=== PATIENT | male | born 1945 | race Caucasian/White ===

== ENCOUNTER 2022-08-08 10:13 | Emergency (ER) | payer MEDICARE, OTHER ==
--- NOTE | 2022-08-08 10:47 | ED ---
General Adult HPI - General Chief complaint: Abdominal Pain Stated complaint: urogenital Time Seen by Provider: 08/08/22 10:27 Source: patient, RN notes reviewed, old records reviewed Mode of arrival: ambulatory Limitations: no limitations - History of Present Illness Initial comments: 77-year-old male presents ambulatory with family complaining of urinary retention since 2 AM. Does have a history of BPH and on Hytrin. Did have some nausea no vomiting. No fevers. No back pain. History of hypertension, hyperlipidemia. -: hour(s) (8) Location: abdomen (suprapubic) Severity scale (1-10): 6 Quality: constant, other (full) Consistency: constant Improves with: none Worsens with: other (palpation, standing) Associated Symptoms: nausea/vomiting (no vomiting) Treatments Prior to Arrival: none - Related Data Home Medications Medication Instructions Recorded Confirmed Alendronate Sodium 70 mg PO Q7D 08/08/22 08/08/22 PARoxetine [Paxil] 20 mg PO DAILY 08/08/22 08/08/22 Pravastatin Sodium [Pravachol] 40 mg PO DAILY 08/08/22 08/08/22 Terazosin HCl 20 mg PO HS 08/08/22 08/08/22 Verapamil HCl [Verapamil ER] 120 mg PO DAILY 08/08/22 08/08/22 Allergies Allergy/AdvReac Type Severity Reaction Status Date / Time No Known Allergies Allergy Verified 08/08/22 11:40 Review of Systems ROS Statement: Those systems with pertinent positive or pertinent negative responses have been documented in the HPI. ROS Other: All systems not noted in ROS Statement are negative. Past Medical History Past Medical History: Hyperlipidemia, Hypertension History of Any Multi-Drug Resistant Organisms: None Reported Past Surgical History: No Surgical Hx Reported Past Psychological History: Anxiety, Depression Smoking Status: Current every day smoker Past Alcohol Use History: Rare Past Drug Use History: None Reported General Exam Limitations: no limitations General appearance: alert, in no apparent distress Head exam: Present: atraumatic Eye exam: Present: normal appearance, PERRL, EOMI. Absent: scleral icterus, conjunctival injection, periorbital swelling ENT exam: Present: mucous membranes moist Neck exam: Present: full ROM. Absent: tenderness, meningismus Respiratory exam: Absent: respiratory distress, accessory muscle use Cardiovascular Exam: Present: tachycardia GI/Abdominal exam: Present: soft, tenderness (Suprapubic). Absent: distended, guarding, rebound, rigid Extremities exam: Present: normal capillary refill. Absent: pedal edema Back exam: Absent: tenderness Neurological exam: Present: alert, oriented X3, normal gait Psychiatric exam: Present: normal affect, normal mood Skin exam: Present: warm, dry, normal color. Absent: cyanosis, diaphoretic, petechiae, pallor Course Vital Signs 08/08/22 08/08/22 08/08/22 10:17 11:31 12:59 Temperature 97.6 F 98.0 F Pulse Rate 109 H 70 90 Respiratory 20 18 18 Rate Blood Pressure 179/87 133/96 161/90 O2 Sat by Pulse 99 95 96 Oximetry Medical Decision Making - Medical Decision Making Patient presents with urinary retention since 2 AM. Afebrile. Bladder scan shows 596cc of urine. Flores catheter was placed by the nursing staff with no complications with relief of retention. No abdominal pain. No nausea vomiting or diarrhea. Urinalysis shows no evidence of infection. He was given a leg bag and referral to urology here as patient does live in [place]. Retention likely caused from benign prostate hypertrophy, patient states was put on hytrin for BPH.. Discharged home with family. Patient is agreeable to discharge. All questions were answered. Case discussed with Dr. Conrad. Was pt. sent in by a medical professional or institution (, PA, LICENSED CHEMICAL SPRAY TECHNICIAN, urgent care, hospital, or detention...) When possible be specific @ -No Did you speak to anyone other than the patient for history (EMS, parent, family, police, friend...)? What history was obtained from this source @ -No Did you review nursing and triage notes (agree or disagree)? Why? @ -I reviewed and agree with nursing and triage notes Were old charts reviewed (outside hosp., previous admission, EMS record, old EKG, old radiological studies, urgent care reports/EKG's, detention records)? Report findings @ -No old charts were reviewed Differential Diagnosis (chest pain, altered mental status, abdominal pain women, abdominal pain men, vaginal bleeding, weakness, fever, dyspnea, syncope, h eadache, dizziness, GI bleed, back pain, seizure, CVA, palpatations, mental health, musculoskeletal)? @ -BPH, urethral stricture, UTI, constipation, this is not an all inclusive l ist EKG interpreted by me (3pts min.). @ -n/a X-rays interpreted by me (1pt min.). @ -None done CT interpreted by me (1pt min.). @ -None done U/S interpreted by me (1pt. min.). @ -None done What testing was considered but not performed or refused? (CT, X-rays, U/S, labs)? Why? @ -None What meds were considered but not given or refused? Why? @ -None Did you discuss the management of the patient with other professionals (professionals i.e. , PA, LICENSED CHEMICAL SPRAY TECHNICIAN, lab, RT, psych nurse, manager social media, whipped topping supervisor, teacher, airline pilot/first officer, correctional case manager)? Give summary @ -No Was smoking cessation discussed for >3mins.? @ -No Was critical care preformed (if so, how long)? @ -No Were there social determinants of health that impacted care today? How? (Homelessness, low income, unemployed, alcoholism, drug addiction, transportation, low edu. Level, literacy, decrease access to med. care, [facility], rehab)? @ -No Was there de-escalation of care discussed even if they declined (Discuss DNR or withdrawal of care, Hospice)? DNR status @ -No What co-morbidities impacted this encounter? (DM, HTN, Smoking, COPD, CAD, Cancer, CVA, ARF, Chemo, Hep., AIDS, mental health diagnosis, sleep apnea, morbid obesity)? @ -BPH, hypertension, hyperlipidemia Was patient admitted / discharged? Hospital course, mention meds given and route, prescriptions, significant lab abnormalities, going to OR and other pertinent info. @ -Discharged Undiagnosed new problem with uncertain prognosis? @ -No Drug Therapy requiring intensive monitoring for toxicity (Heparin, Nitro, Insulin, Cardizem)? @ -No Were any procedures done? @ -No Diagnosis/symptom? @ -Urinary retention, BPH Acute, or Chronic, or Acute on Chronic? @ -Acute Uncomplicated (without systemic symptoms) or Complicated (systemic symptoms)? @ -Uncomplicated Side effects of treatment? @ -No Exacerbation, Progression, or Severe Exacerbation? @ -No Poses a threat to life or bodily function? How? (Chest pain, USA, SC, pneumonia, PE, COPD, DKA, ARF, appy, cholecystitis, CVA, Diverticulitis, Homicidal, Suicidal, threat to staff... and all critical care pts) @ -No - Lab Data Lab Results 08/08/22 Range/Units 11:31 Urine Color Yellow Urine Appearance Clear (Clear) Urine pH 6.5 (5.0-8.0) Ur Specific [place] 1.016 (1.001-1.035) Urine Protein Trace H (Negative) Urine Glucose (UA) Negative (Negative) Urine Ketones Negative (Negative) Urine Blood Moderate H (Negative) Urine Nitrite Negative (Negative) Urine Bilirubin Negative (Negative) Urine Urobilinogen <2.0 (<2.0) mg/dL Ur Leukocyte Esterase Negative (Negative) Urine RBC 110 H (0-5) /hpf Urine WBC 8 H (0-5) /hpf Urine Mucus Rare H (None) /hpf Disposition Clinical Impression: Urinary retention Disposition: HOME SELF-CARE Condition: Good Instructions (If sedation given, give patient instructions): Urinary Retention in Men (ED) Additional Instructions: Continue taking your previously prescribed medications. Follow up with a urologist this week. Return to the emergency room with any new or concerning symptoms. Is patient prescribed a controlled substance at d/c from ED?: No Referrals: Nonstaff,Physician [Primary Care Provider] - 1-2 days Haim Wilkerson MD [STAFF PHYSICIAN] - 1-2 days Time of Disposition: 12:33
[2022-08-08 11:34] VITALS: RESP 18
[2022-08-08 11:51] LABS: Appearance,Urine Clear (Clear); Bilirubin,Urine Negative (Negative); Blood,Urine Moderate (Negative); Color,Urine Yellow; Glucose,Urine (UA) Negative (Negative); Ketones,Urine Negative (Negative); Leukocyte Esterase,Urine Negative (Negative); Mucus,Urine Rare /hpf; Nitrite,Urine Negative (Negative); PH, Urine 6.5 (5.0-8.0); Protein,Urine Trace (Negative); RBC,Urine 110 /hpf (0-5); Specific Gravity,Urine 1.016 (1.001-1.035); Urobilinogen,Urine <2.0 mg/dL (<2.0); WBC,Urine 8 /hpf (0-5)
[2022-08-08 13:00] VITALS: BP 161/90; PULSE 90; TEMP 98
== END 2022-08-08 13:00 | disposition home or self-care (01) ==
LOC: EC 10:13
DX: R33.9 Retention of urine, unspecified (principal); E78.5 Hyperlipidemia, unspecified; I10 Essential (primary) hypertension; F41.9 Anxiety disorder, unspecified; F32.A Depression, unspecified; F17.200 Nicotine dependence, unspecified, uncomplicated; Z79.899 Other long term (current) drug therapy
CPT/HCPCS: 51702; 51798; 81001; 99284

== ENCOUNTER 2022-08-09 23:20 | Emergency (ER) | payer MEDICARE, OTHER ==
[2022-08-09 23:48] VITALS: TEMP 98.3
[2022-08-10 00:47] LABS: Appearance,Urine Cloudy (Clear); Bacteria,Urine Rare /hpf; Bilirubin,Urine Negative (Negative); Blood,Urine Large (Negative); Calcium Oxalate Crystals,Urine Occasional /hpf; Color,Urine Yellow; Glucose,Urine (UA) Negative (Negative); Ketones,Urine Negative (Negative); Leukocyte Esterase,Urine Large (Negative); Mucus,Urine Few /hpf; Nitrite,Urine Negative (Negative); PH, Urine 5.5 (5.0-8.0); Protein,Urine 1+ (Negative); RBC,Urine >182 /hpf (0-5); Specific Gravity,Urine 1.021 (1.001-1.035); Urobilinogen,Urine <2.0 mg/dL (<2.0); WBC,Urine 56 /hpf (0-5)
[2022-08-10] MEDS ORDERED: cefTRIAXone 1,000 MG VIAL (IM USE) IM STA (01:00)
--- NOTE | 2022-08-10 01:05 | ED ---
Male Urogenital HPI - General Chief complaint: Abdominal Pain Stated complaint: Cath issue Time Seen by Provider: 08/10/22 00:00 Source: patient, RN notes reviewed Mode of arrival: ambulatory Limitations: no limitations - History of Present Illness Initial comments: This is a 77-year-old male who presents emergency department for problems with his Flores catheter. Patient was here yesterday and had a Flores catheter placed for urinary retention secondary to BPH. States that since he has gone home, he has started to have leaking around the catheter and has burning in the tip of his penis. Not currently on antibiotics. He has an appointment with urology next week on Monday. Denies any fevers, chills, sore throat, cough, dyspnea, chest pain, palpitations, abdominal pain, nausea, vomiting, diarrhea, back pain, or headaches. MD Complaint: dysuria - Related Data Home Medications Medication Instructions Recorded Confirmed Alendronate Sodium 70 mg PO Q7D 08/08/22 08/08/22 PARoxetine [Paxil] 20 mg PO DAILY 08/08/22 08/08/22 Pravastatin Sodium [Pravachol] 40 mg PO DAILY 08/08/22 08/08/22 Terazosin HCl 20 mg PO HS 08/08/22 08/08/22 Verapamil HCl [Verapamil ER] 120 mg PO DAILY 08/08/22 08/08/22 Previous Rx's Medication Instructions Recorded Cefpodoxime Proxetil [Vantin] 200 mg PO Q12HR 7 Days #14 tab 08/10/22 Allergies Allergy/AdvReac Type Severity Reaction Status Date / Time No Known Allergies Allergy Verified 08/08/22 11:40 Review of Systems ROS Statement: Those systems with pertinent positive or pertinent negative responses have been documented in the HPI. ROS Other: All systems not noted in ROS Statement are negative. Past Medical History Past Medical History: Hyperlipidemia, Hypertension Additional Past Medical History / Comment(s): prostate cancer History of Any Multi-Drug Resistant Organisms: None Reported Past Surgical History: No Surgical Hx Reported Additional Past Surgical History / Comment(s): bladder surgery Past Psychological History: Anxiety, Depression Smoking Status: Current every day smoker Past Alcohol Use History: Rare Past Drug Use History: None Reported General Exam Limitations: no limitations General appearance: alert, in no apparent distress Head exam: Present: atraumatic, normocephalic, normal inspection Respiratory exam: Present: normal lung sounds bilaterally. Absent: respiratory distress, wheezes, rales, rhonchi, stridor Cardiovascular Exam: Present: regular rate, normal rhythm, normal heart sounds. Absent: systolic murmur, diastolic murmur, rubs, gallop, clicks GI/Abdominal exam: Present: soft, normal bowel sounds. Absent: distended, tenderness, guarding, rebound, rigid Neurological exam: Present: alert, oriented X3, CN II-XII intact Psychiatric exam: Present: normal affect, normal mood Skin exam: Present: warm, dry, intact, normal color. Absent: rash Course Vital Signs 08/09/22 23:41 Temperature 98.3 F Pulse Rate 95 Respiratory 14 Rate Blood Pressure 126/76 O2 Sat by Pulse 94 L Oximetry Medical Decision Making - Medical Decision Making This is a 77-year-old male who presents to the emergency department for problems with his Flores catheter and dysuria. Was pt. sent in by a medical professional or institution? @ -No Did you speak to anyone other than the patient for history? @ -His Did you review nursing and triage notes? @ -I disagree with the portion of the triage note that says the patient had a procedure yesterday, that was not the case. Were old charts reviewed? @ -No Differential Diagnosis? @ -Differential Dysuria: UTI, pyelonephritis, ureteral calculus, trauma, this is not meant to be an all- inclusive list. What testing was considered but not performed? (CT, X-rays, U/S, labs)? Why? @ -None What meds were considered but not given? Why? @ -None Did you discuss the management of the patient with other professionals? @ -No Did you reconcile home meds? @ -No Was smoking cessation discussed for >3mins.? @ -No Was critical care preformed (if so, how long)? @ -No Were there social determinants of health that impacted care today? How? (Homelessness, low income, unemployed, alcoholism, drug addiction, transportation, low edu. Level, literacy, decrease access to med. care, assisted, rehab)? @ -No Was there de-escalation of care discussed even if they declined? (Discuss DNR or withdrawal of care, Hospice)? @ -No What co-morbidities impacted this encounter? (DM, HTN, Smoking, COPD, CAD, Cancer, CVA, Hep., AIDS, mental health diagnosis, sleep apnea, morbid obesity)? @ -BPH Was patient admitted / discharged? @ -Discharged. The RN, Melissa, evaluated the Flores catheter, she determined that the balloon was not fully inflated. The patient was also not sent home with a Flores catheter bag and the catheter had been essentially dangling. The n urse states that when the balloon is not fully inflated and moves around, urine has a tendency to leak around the catheter. The catheter was removed and replaced. Patient no longer had urine leaking around the catheter and the burning sensation resolved. Urine was observed to be flowing into the Flores catheter bag and the patient overall felt much better. Urinalysis consistent with infection. IM Rocephin administered in the emergency department. Rx for cefpodoxime provided with dosing instructions reviewed. He is instructed to follow up with urology as scheduled on 08/15. Undiagnosed new problem with uncertain prognosis? @ -None Drug Therapy requiring intensive monitoring for toxicity (Heparin, Nitro, Insulin, Cardizem)? @ -None Were any procedures done? @ -None Diagnosis/symptom? @ -UTI, Flores catheter problem Acute, or Chronic, or Acute on Chronic? @ -Acute Uncomplicated (without systemic symptoms) or Complicated (systemic symptoms)? @ -Uncomplicated Side effects of treatment? @ -None Exacerbation, Progression, or Severe Exacerbation] @ -Not applicable Poses a threat to life or bodily function? @ -No Return precautions reviewed in depth, the patient is instructed to return to the emergency department with any new, worsening, or concerning symptoms. Patient verbalized understanding. This case was discussed in detail with the attending ED physician, Dr. Mark. Presentation, findings, and treatment plan discussed in detail as well. - Lab Data Lab Results 08/10/22 Range/Units 00:14 Urine Color Yellow Urine Appearance Cloudy (Clear) Urine pH 5.5 (5.0-8.0) Ur Specific [place] 1.021 (1.001-1.035) Urine Protein 1+ H (Negative) Urine Glucose (UA) Negative (Negative) Urine Ketones Negative (Negative) Urine Blood Large H (Negative) Urine Nitrite Negative (Negative) Urine Bilirubin Negative (Negative) Urine Urobilinogen <2.0 (<2.0) mg/dL Ur Leukocyte Esterase Large H (Negative) Urine RBC >182 H (0-5) /hpf Urine WBC 56 H (0-5) /hpf Calcium Oxalate Crystal Occasional H (None) /hpf Urine Bacteria Rare H (None) /hpf Urine Mucus Few H (None) /hpf Disposition Clinical Impression: UTI (urinary tract infection), Flores catheter problem Disposition: HOME SELF-CARE Instructions (If sedation given, give patient instructions): Urinary Tract Infection in Men (ED), Flores Catheter Placement and Care (ED), How to Change a Catheter Drainage Bag (DC) Additional Instructions: Return to the emergency department with any new, worsening, or concerning symptoms. Take the antibiotic as prescribed for 7 days. Follow up with urology as scheduled next week. Prescriptions: Cefpodoxime Proxetil [Vantin] 200 mg PO Q12HR 7 Days #14 tab Is patient prescribed a controlled substance at d/c from ED?: No Referrals: Nonstaff,Physician [Primary Care Provider] - 1-2 days
[2022-08-10 02:48] VITALS: BP 152/72; PULSE 97; RESP 20
== END 2022-08-10 03:00 | disposition home or self-care (01) ==
LOC: EC 23:20
DX: T83.091A Other mechanical complication of indwelling urethral catheter, initial encounter (principal); N39.0 Urinary tract infection, site not specified; I10 Essential (primary) hypertension; E78.5 Hyperlipidemia, unspecified; F32.A Depression, unspecified; F41.9 Anxiety disorder, unspecified; F17.200 Nicotine dependence, unspecified, uncomplicated; Z79.899 Other long term (current) drug therapy; Y73.8 Miscellaneous gastroenterology and urology devices associated with adverse incidents, not elsewhere classified
CPT/HCPCS: 99284 ×2; 96372 ×2; 51702 ×2; 81001; 87086; J0696